=== PATIENT | female | born 1970 | race Hispanic/Latino ===

== ENCOUNTER 2017-09-06 15:16 | Emergency (ER) | payer SELFPAY ==
[2017-09-06] MEDS ORDERED: Ondansetron ODT 4 MG TAB ONE ×2 (16:03→17:45)
[2017-09-06] MEDS ORDERED: ISOVUE-370 76%-LOCM 1 ML ONE (16:23)
[2017-09-06] MEDS ORDERED: Iopamidol 370 76% 50 ML VIAL FS ONE (16:23)
[2017-09-06 16:49] LABS: #Lymphocytes 1.3 thou/uL (1.20-3.40); #Monocytes 0.4 thou/uL (0.11-0.59); #Neutrophils 7.8 thou/uL (1.40-6.50); %Basophils 0.2 % (0.0-1.0); %Eosinophils 0.5 % (0.0-10.0); %Lymphocytes 13.9 % (21.0-51.0); %Monocytes 3.8 % (0.0-10.0); %Neutrophils 81.6 % (42.0-75.0); Hemoglobin 13.7 g/dL (12.0-16.0); Mean Corpuscular HGB CONC 36.2 g/dL (32.0-36.0); Mean Corpuscular Hemoglobin 33.1 pg (27.0-31.0); Mean Corpuscular Volume 91.5 fl (81.0-99.0); Mean Platelet Volume 7.3 fL (7.4-10.4); Platelet Count 220 thou/uL (130-400); RBC Distribution Width 11.5 % (11.5-14.5); Red Blood Cell (RBC) Count 4.15 mill/uL (4.20-5.40); White Blood Cell (WBC) Count 9.5 thou/uL (4.8-10.8)
[2017-09-06 17:12] LABS: ALT (SGPT) 23 U/L (8-55); AST (SGOT) 25 U/L (5-34); Albumin 4.6 g/dL (3.5-5.0); Alkaline Phosphatase 121 U/L (40-150); Anion Gap 16 mmol/L (10-20); BUN (Urea Nitrogen) 13 mg/dL (7.0-18.7); Bilirubin, Total 0.6 mg/dL (0.2-1.2); Calc. Creatinine Clearance 0 mL/min (70-130); Calcium 9.7 mg/dL (7.8-10.44); Carbon Dioxide 19 mmol/L (22-29); Chloride 105 mmol/L (98-107); Estimated GFR-MDRD Greater than 90; Globulin 3.1 g/dL (2.4-3.5); Glucose 115 mg/dL (70-105); Potassium 3.4 mmol/L (3.5-5.1); Protein, Total 7.7 g/dL (6.0-8.3); Sodium 137 mmol/L (136-145)
[2017-09-06 17:27] LABS: Bilirubin Negative (Negative); Blood, Urine Negative (Negative); Clarity TURBID (Clear); Glucose, Urine (Dipstick) Negative (Negative); Leukocyte Negative (Negative); Nitrite Negative (Negative); Protein, Urine (Dipstick) Trace mg/dL (Neg-Trace); Specific Gravity, Urine 1.015 (1.002-1.036); Urobilinogen 0.2 mg/dL (0.2-1.0); pH, Urine 8.5 (5.0-9.0)
[2017-09-06 17:52] LABS: Pregnancy Test - Urine (BHCG) Negative (Negative)
[2017-09-06 17:53] LABS: Pregu Control Background? CLEAR/WHITE (CLR/WHITE); Pregu Control Bar Appear? YES (CONTROL BAR); Specific Gravity 1.015 (1.002-1.036)
[2017-09-06] MEDS ORDERED: Promethazine HCl 25 MG/ML VIAL ONE (19:24)
--- NOTE | 2017-09-06 20:06 | CT ---
CT OF ABDOMEN AND PELVIS PERFORMED WITH CONTRAST ENHANCEMENT: 09/06/17 HISTORY: Abdominal pain. left sided onset approximately and hour and half prior to arrival. COMPARISON: 07/20/15 exam. Lung bases are clear. The liver and spleen show no focal abnormalities. The pancreas and gallbladder regions are unremarkable. Right and left adrenal glands and right and left kidneys are normal in size. there is no significant periaortic or mesenteric adenopathy. No signs of obstruction. The appendix is normal in size and more retrocecal in location. CT OF PELVIS PERFORMED WITH CONTRAST ENHANCEMENT: The uterus has been removed. No adenopathy or mass. No inflammatory process. Review of osseous structures showed no lytic or blastic bony change. IMPRESSION: No acute abnormalities of the abdomen or pelvis. POS: [facility]
== END 2017-09-06 20:40 | disposition home or self-care (01) ==
LOC: ERS 15:16
DX: R10.32 Left lower quadrant pain (principal); R11.10 Vomiting, unspecified; R19.7 Diarrhea, unspecified
CPT/HCPCS: 36415; 74177; 80053; 81003; 81025; 85025; 96365; 96375; 96376; J2270; J2550; Q0162

== ENCOUNTER 2021-02-14 09:58 | Outpatient (CLI) | payer OTHER | END 2021-02-14 09:59 | disposition home or self-care (01) | LOC: BICULT 09:58 | PROVIDERS: ATTEND Urology | DX: N13.30 Unspecified hydronephrosis (principal); Z96.0 Presence of urogenital implants | CPT/HCPCS: 76770 ==